=== PATIENT | male | born 1980 | race Caucasian/White ===

== ENCOUNTER 2017-10-21 15:15 | Emergency (ER) | payer SELFPAY ==
[~2017-10-21] VITALS: Ht 175.3 cm; Wt 92.5 kg
[~2017-10-21 15:15] MED LIST: ALBU8.5H8 IH; CLON0.1T20; COROTSUS OT; LURA20TA PO
[2017-10-21 15:26] VITALS: BP 148/73
[2017-10-21] MEDS ORDERED: ALBU8.5H8 IH (16:17)
[2017-10-21] MEDS ORDERED: GUAI120015 PO (16:17)
[2017-10-21] MEDS ORDERED: AZIT-57 PO (16:17)
[2017-10-21] MEDS ORDERED: GUAI473S11 PO (16:17)
== END 2017-10-21 16:43 | disposition home or self-care (01) ==
LOC: ER 15:15
DX: R05 Cough (principal); R50.9 Fever, unspecified; R68.89 Other general symptoms and signs; F17.200 Nicotine dependence, unspecified, uncomplicated; I10 Essential (primary) hypertension; F12.10 Cannabis abuse, uncomplicated; F15.10 Other stimulant abuse, uncomplicated; Z98.890 Other specified postprocedural states; Z79.899 Other long term (current) drug therapy
CPT/HCPCS: 99283

== ENCOUNTER 2018-03-31 09:41 | Emergency (ER) | payer BC, MEDICAID ==
[~2018-03-31] VITALS: Ht 597.6 cm; Wt 79.8 kg
[~2018-03-31 09:41] MED LIST changes: +GUAI120015 PO
[2018-03-31] MEDS ORDERED: ziprasidone 20mg capsule PO STA (10:14)
[2018-03-31 11:02] LABS: BASOPHILS % (AUTO) 0.6 % (0-1); EOSINOPHILS # (AUTO) 0.6 X10'3 (0-0.9); EOSINOPHILS % (AUTO) 8.3 % (0-6); HEMATOCRIT 50.4 % (42.0-52.0); HEMOGLOBIN 17.5 g/dl (14.0-17.9); LYMPHOCYTES # (AUTO) 2.3 X10'3 (1.1-4.8); LYMPHOCYTES % (AUTO) 30.2 % (21-51); MEAN CORPUSCULAR HEMOGLOBIN 30.9 PG (27.0-31.0); MEAN CORPUSCULAR HGB CONC 34.6 % (33.0-36.5); MEAN CORPUSCULAR VOLUME 89.3 FL (78-98); MEAN PLATELET VOLUME 8.2 FL (7.4-10.4); MONOCYTES # (AUTO) 0.4 X10'3 (0-0.9); MONOCYTES % (AUTO) 5.8 % (2-12); NEUTROPHILS # (AUTO) 4.1 X10'3 (1.8-7.7); NEUTROPHILS % (AUTO) 55.1 % (42-75); PLATELET COUNT 349 X10'3 (140-440); RED BLOOD COUNT 5.65 X10'6 (4.70-6.10); RED CELL DISTRIBUTION WIDTH 12.6 % (11.5-14.5); WHITE BLOOD COUNT 7.5 X10'3 (4.5-11.0)
[2018-03-31] MEDS ORDERED: LORazepam 1 MG tablet PO ONE (11:15)
[2018-03-31 11:16] LABS: ALANINE AMINOTRANSFERASE 23 U/L (12-78); ALBUMIN/GLOBULIN RATIO 1.1 (1.1-1.5); ALKALINE PHOSPHATASE 83 IU/L (46-116); ANION GAP 12 (8-16); ASPARTATE AMINO TRANSFERASE 14 U/L (10-37); BILIRUBIN,TOTAL 1.7 MG/DL (0.1-1.0); BLOOD UREA NITROGEN 7 MG/DL (7-18); BUN/CREATININE RATIO 6.5 (5.4-32.0); CALCIUM 9.1 MG/DL (8.5-10.1); CHLORIDE 102 MMOL/L (99-107); CREATININE 1.08 MG/DL (0.60-1.10); GLUCOSE 138 MG/DL (70-104); POTASSIUM 3.8 MMOL/L (3.5-5.1); SODIUM 140 MMOL/L (135-145); TOTAL CARBON DIOXIDE 25.7 MMOL/L (24-32); TOTAL PROTEIN 7.6 G/DL (6.4-8.2); eGFR 76 ML/MIN
[2018-03-31 11:26] LABS: ETHANOL < 0.010 GM/DL (0.0-0.010)
[2018-03-31 21:18] LABS: CLARITY,URINE CLEAR (Clear); COLOR,URINE YELLOW (Yellow); GLUCOSE, URINE NEGATIVE (Neg); KETONES,URINE NEGATIVE (Neg); LEUKOCYTE ESTERASE ,URINE NEGATIVE (Neg); NITRITES, URINE NEGATIVE (Neg); OCCULT BLOOD,URINE NEGATIVE (Neg); PROTEIN,URINE NEGATIVE (Neg); UROBILINOGEN,URINE 0.2 E.U/dL (0.2-1.0)
[2018-03-31 21:26] LABS: URINE AMPHETAMINE SCREEN POSITIVE (Neg); URINE BARBITUATE SCREEN NEGATIVE (Neg); URINE BENZODIAZEPINES SCREEN NEGATIVE (Neg); URINE CANNABINOID SCREEN NEGATIVE (Neg); URINE COCAINE SCREEN NEGATIVE (Neg); URINE METHADONE SCREEN NEGATIVE (Neg); URINE OPIATE SCREEN NEGATIVE (Neg); URINE PHENCYCLIDINE SCREEN NEGATIVE (Neg)
[2018-03-31 21:28] LABS: UA COLLECTION TYPE NON-SPECIFIED
[2018-04-02 06:06] VITALS: BP 100/66
[2018-04-02] MEDS ORDERED: NICO-687 TOP (09:33)
== END 2018-04-02 07:59 | disposition home or self-care (01) ==
LOC: ER 09:41 → EEVIPCON 09:41 → ER 04-02 07:59
DX: R45.851 Suicidal ideations (principal); F22 Delusional disorders; R45.1 Restlessness and agitation; F31.9 Bipolar disorder, unspecified; I10 Essential (primary) hypertension; F41.9 Anxiety disorder, unspecified; F12.90 Cannabis use, unspecified, uncomplicated; F15.90 Other stimulant use, unspecified, uncomplicated; F17.210 Nicotine dependence, cigarettes, uncomplicated; Z90.49 Acquired absence of other specified parts of digestive tract; Z98.890 Other specified postprocedural states; Z79.899 Other long term (current) drug therapy
CPT/HCPCS: 36415; 80053; 80305; 80320; 81003; 84443; 85025; 99284

== ENCOUNTER 2018-04-01 21:45 | Inpatient (IN) | payer BC ==
[~2018-04-01] VITALS: Ht 175.3 cm; Wt 98.6 kg
[2018-04-02] MEDS ORDERED: magnesium hydroxide 30ml (MOM) UD suspension PO PRN (08:20)
[2018-04-02] MEDS ORDERED: acetaminophen 325mg tablet PO PRN ×2 (08:20)
[2018-04-02] MEDS ORDERED: mag hydrox/Alum hydrox/simeth 30ml oral suspension PO PRN (08:20)
[2018-04-02 09:13] VITALS: BP 124/79
[2018-04-02] MEDS ORDERED: NICO-687 TOP (09:33)
[2018-04-02] MEDS: nicotine 21mg patch - 24 hr TD SCH (09:58)
[2018-04-02] MEDS ORDERED: traZODone 50mg tablet PO PRN (13:10)
[2018-04-02 13:43] LABS: CHOL/HDL RATIO 4.1 (0.00-4.99); CHOLESTEROL 143 MG/DL (0-200); HDL CHOLESTEROL 35 MG/DL (35-60); LDL CHOLESTEROL 98 MG/DL (50-100); TRIGLYCERIDES 120 MG/DL (20-135)
[2018-04-02 20:00] VITALS: BP 109/67
[2018-04-03] MEDS: nicotine 21mg patch - 24 hr TD SCH (07:16)
[2018-04-03] MEDS ORDERED: duloxetine 30mg CAPSULE.DR PO SCH (08:00)
[2018-04-03 08:20] VITALS: BP_SYST 109; BP_SYST 150; BP_DIAS 71; BP_DIAS 85
[2018-04-03 19:42] VITALS: BP 99/57
[2018-04-03] MEDS: traZODone 50mg tablet PO SCH (21:16)
[2018-04-04] MEDS: duloxetine 30mg CAPSULE.DR PO SCH (08:09)
[2018-04-04] MEDS: nicotine 21mg patch - 24 hr TD SCH (08:13)
[2018-04-04 08:51] VITALS: BP 112/66
[2018-04-04 19:18] VITALS: BP 121/81
[2018-04-04] MEDS: traZODone 50mg tablet PO SCH (21:31)
[2018-04-05] MEDS: duloxetine 30mg CAPSULE.DR PO SCH (07:23)
[2018-04-05] MEDS: nicotine 21mg patch - 24 hr TD SCH (07:23)
[2018-04-05 08:03] VITALS: BP 119/72
[2018-04-05] MEDS ORDERED: psyllium seed 3.4 gm packet PO PRN (14:40)
[2018-04-05 19:51] VITALS: BP 120/77
[2018-04-05] MEDS: traZODone 150mg tablet PO SCH (20:34)
[2018-04-06] MEDS: duloxetine 30mg CAPSULE.DR PO SCH (07:53)
[2018-04-06] MEDS: nicotine 21mg patch - 24 hr TD SCH (07:53)
[2018-04-06 08:00] VITALS: BP 110/77
[2018-04-06 19:55] VITALS: BP 118/69
[2018-04-06] MEDS: traZODone 150mg tablet PO SCH (21:00)
[2018-04-06] MEDS: hydrOXYzine 10 MG tablet PO PRN (21:00)
[2018-04-07 08:00] VITALS: BP 101/76
[2018-04-07] MEDS: duloxetine 30mg CAPSULE.DR PO SCH (08:21)
[2018-04-07] MEDS: nicotine 21mg patch - 24 hr TD SCH (08:22)
[2018-04-07] MEDS: propranolol 10mg tablet PO SCH ×2 (16:12→20:52)
[2018-04-07 20:17] VITALS: BP 112/74
[2018-04-07] MEDS: traZODone 150mg tablet PO SCH (20:52)
[2018-04-08 08:00] VITALS: BP 106/61
[2018-04-08] MEDS: propranolol 10mg tablet PO SCH ×3 (08:27→20:36)
[2018-04-08] MEDS: duloxetine 30mg CAPSULE.DR PO SCH (08:27)
[2018-04-08] MEDS: nicotine 21mg patch - 24 hr TD SCH (08:27)
[2018-04-08 19:39] VITALS: BP 133/74
[2018-04-08] MEDS: traZODone 150mg tablet PO SCH (20:37)
[2018-04-09] MEDS: nicotine 21mg patch - 24 hr TD SCH (07:44)
[2018-04-09] MEDS: duloxetine 30mg CAPSULE.DR PO SCH ×2 (07:46→12:33)
[2018-04-09] MEDS: propranolol 10mg tablet PO SCH ×3 (07:46→21:11)
[2018-04-09 08:00] VITALS: BP 105/56
[2018-04-09 19:34] VITALS: BP 114/65
[2018-04-09] MEDS: traZODone 50mg tablet PO SCH (21:12)
[2018-04-10 07:40] VITALS: BP 108/71
[2018-04-10] MEDS: nicotine 21mg patch - 24 hr TD SCH (07:43)
[2018-04-10] MEDS: duloxetine 30mg CAPSULE.DR PO SCH ×2 (07:43→12:51)
[2018-04-10] MEDS: propranolol 10mg tablet PO SCH ×3 (07:43→20:16)
[2018-04-10 12:45] VITALS: BP 107/57
[2018-04-10 19:50] VITALS: BP 100/69
[2018-04-10] MEDS: traZODone 50mg tablet PO SCH (20:16)
[2018-04-11 08:00] VITALS: BP 110/62
[2018-04-11] MEDS: nicotine 21mg patch - 24 hr TD SCH (08:28)
[2018-04-11] MEDS: busPIRone 5mg tablet PO SCH ×2 (08:28→20:32)
[2018-04-11] MEDS: propranolol 10mg tablet PO SCH ×3 (08:28→20:32)
[2018-04-11] MEDS: duloxetine 30mg CAPSULE.DR PO SCH ×2 (08:29→12:37)
[2018-04-11] MEDS: nicotine prolacrilex 2mg gum BC PRN ×2 (13:25→16:11)
[2018-04-11] MEDS: hydrOXYzine 10 MG tablet PO PRN (16:46)
[2018-04-11 19:00] VITALS: BP 111/57
[2018-04-11] MEDS: traZODone 50mg tablet PO SCH (20:32)
[2018-04-12] MEDS: nicotine 21mg patch - 24 hr TD SCH (07:44)
[2018-04-12] MEDS: propranolol 10mg tablet PO SCH ×3 (08:13→20:21)
[2018-04-12] MEDS: duloxetine 30mg CAPSULE.DR PO SCH ×2 (08:13→13:04)
[2018-04-12] MEDS: busPIRone 5mg tablet PO SCH ×2 (08:14→20:21)
[2018-04-12 08:21] VITALS: BP 108/59
[2018-04-12] MEDS: nicotine prolacrilex 2mg gum BC PRN (08:46)
[2018-04-12] MEDS: hydrOXYzine 10 MG tablet PO PRN (13:58)
[2018-04-12 19:00] VITALS: BP 111/48
[2018-04-12] MEDS: traZODone 50mg tablet PO SCH (20:21)
[2018-04-12 20:30] VITALS: BP 116/70
[2018-04-13 08:00] VITALS: BP 120/75
[2018-04-13] MEDS: nicotine 21mg patch - 24 hr TD SCH (08:11)
[2018-04-13] MEDS: duloxetine 30mg CAPSULE.DR PO SCH ×2 (08:11→12:55)
[2018-04-13] MEDS: busPIRone 5mg tablet PO SCH ×2 (08:11→20:28)
[2018-04-13] MEDS: propranolol 10mg tablet PO SCH ×3 (08:11→20:28)
[2018-04-13] MEDS: nicotine prolacrilex 2mg gum BC PRN ×3 (08:39→14:58)
[2018-04-13] MEDS: hydrOXYzine 10 MG tablet PO PRN (08:39)
[2018-04-13] MEDS ORDERED: tuberculin, purif. prot. deriv. 5 units/0.1ml ID ONE (14:05)
[2018-04-13 19:00] VITALS: BP 109/64
[2018-04-13] MEDS: traZODone 50mg tablet PO SCH (20:28)
[2018-04-14 07:41] VITALS: BP 124/52
[2018-04-14] MEDS: propranolol 10mg tablet PO SCH ×3 (08:27→20:20)
[2018-04-14] MEDS: duloxetine 30mg CAPSULE.DR PO SCH ×2 (08:27→12:51)
[2018-04-14] MEDS: busPIRone 5mg tablet PO SCH (08:28)
[2018-04-14] MEDS: nicotine 21mg patch - 24 hr TD SCH (08:28)
[2018-04-14] MEDS: nicotine prolacrilex 2mg gum BC PRN ×3 (09:00→13:28)
[2018-04-14 19:30] VITALS: BP 125/77
[2018-04-14] MEDS: busPIRone 15mg tablet PO SCH (20:20)
[2018-04-14] MEDS: traZODone 50mg tablet PO SCH (21:11)
[2018-04-15] MEDS: duloxetine 30mg CAPSULE.DR PO SCH ×2 (07:28→12:54)
[2018-04-15] MEDS: busPIRone 15mg tablet PO SCH ×2 (07:28→20:26)
[2018-04-15] MEDS: propranolol 10mg tablet PO SCH ×3 (07:29→20:25)
[2018-04-15] MEDS: nicotine 21mg patch - 24 hr TD SCH (07:29)
[2018-04-15 08:00] VITALS: BP 121/77
[2018-04-15] MEDS: nicotine prolacrilex 2mg gum BC PRN ×4 (10:30→17:33)
[2018-04-15 20:00] VITALS: BP 132/75
[2018-04-15] MEDS: traZODone 50mg tablet PO SCH (20:26)
[2018-04-16] MEDS ORDERED: PROP20TA6 PO (07:13)
[2018-04-16] MEDS ORDERED: DULO30CA51 PO (07:13)
[2018-04-16] MEDS ORDERED: BUSP10TA10 PO (07:13)
[2018-04-16] MEDS ORDERED: HYDR-3717 PO (07:13)
[2018-04-16] MEDS ORDERED: DULO60CA45 PO (07:13)
[2018-04-16] MEDS ORDERED: TRAZ-219 PO (07:13)
[2018-04-16] MEDS ORDERED: NICO-687 TD (07:13)
[2018-04-16 08:00] VITALS: BP 116/64
[2018-04-16] MEDS: busPIRone 15mg tablet PO SCH (08:08)
[2018-04-16] MEDS: nicotine 21mg patch - 24 hr TD SCH (08:08)
[2018-04-16] MEDS: duloxetine 30mg CAPSULE.DR PO SCH ×2 (08:09→13:14)
[2018-04-16] MEDS: propranolol 10mg tablet PO SCH ×2 (08:10→13:14)
[2018-04-16] MEDS: nicotine prolacrilex 2mg gum BC PRN ×2 (08:36→10:33)
== END 2018-04-16 14:30 | disposition home or self-care (01) | DRG 885 ==
LOC: ADULT MH 21:45
PROVIDERS: ADMIT Psychiatry & Neurology Psychiatry; ATTEND Psychiatry & Neurology Psychiatry
DX: F33.3 Major depressive disorder, recurrent, severe with psychotic symptoms (principal); R45.851 Suicidal ideations; F17.210 Nicotine dependence, cigarettes, uncomplicated; F40.10 Social phobia, unspecified; F41.9 Anxiety disorder, unspecified; F15.19 Other stimulant abuse with unspecified stimulant-induced disorder; Z79.899 Other long term (current) drug therapy; Z59.0 Homelessness
CPT/HCPCS: 36415; 80061; 83036; 87070

== ENCOUNTER 2018-05-22 13:54 | Emergency (ER) | payer BC, OTHER ==
[~2018-05-22] VITALS: Ht 175.3 cm; Wt 90.0 kg
[~2018-05-22 13:54] MED LIST changes: +BUSP10TA10 PO; +BUSP10TA11 PO; -CLON0.1T20; -COROTSUS OT; +DULO-31 PO; +DULO30CA51 PO; +DULO60CA45 PO; -GUAI120015 PO; +HYDR-3717 PO; -LURA20TA PO; +NICO-687 TD; +PROP20TA6 PO; +TRAZ-219 PO
[2018-05-22 13:59] VITALS: BP 139/92
[2018-05-22] MEDS ORDERED: CLIN300C85 PO (14:36)
== END 2018-05-22 14:49 | disposition home or self-care (01) ==
LOC: ER 13:55
DX: K08.89 Other specified disorders of teeth and supporting structures (principal); I10 Essential (primary) hypertension; F17.200 Nicotine dependence, unspecified, uncomplicated; Z90.49 Acquired absence of other specified parts of digestive tract; Z79.2 Long term (current) use of antibiotics; Z79.899 Other long term (current) drug therapy
CPT/HCPCS: 99283

== ENCOUNTER → 2018-07-20 | Emergency (ER) | payer OTHER ==
[~2018-07-20] VITALS: Ht 177.8 cm; Wt 91.0 kg
[~2018-07-20] MED LIST changes: -BUSP10TA11 PO; +CLIN300C85 PO
[2018-07-20 06:10] VITALS: BP 169/88
== END | disposition home or self-care (01) ==
LOC: ER 12:53
DX: R05 Cough (principal); R09.89 Other specified symptoms and signs involving the circulatory and respiratory systems; I10 Essential (primary) hypertension; Z90.49 Acquired absence of other specified parts of digestive tract; Z98.890 Other specified postprocedural states; Z79.899 Other long term (current) drug therapy
CPT/HCPCS: 99281

== ENCOUNTER 2019-07-05 11:35 | Emergency (ER) | payer OTHER ==
[~2019-07-05] VITALS: Ht 175.3 cm; Wt 104.5 kg
[~2019-07-05 11:35] MED LIST changes: +CLIN-90 PO; -CLIN300C85 PO; -DULO30CA51 PO; +DULO30CA52 PO
[2019-07-05 11:54] VITALS: BP 181/106
[2019-07-05] MEDS ORDERED: SULF1TAB49 PO (14:15)
[2019-07-05] MEDS ORDERED: AMOX-580 PO (14:15)
== END 2019-07-05 14:40 | disposition home or self-care (01) ==
LOC: ER 11:35
DX: L02.211 Cutaneous abscess of abdominal wall (principal); B34.9 Viral infection, unspecified; R05 Cough; R42 Dizziness and giddiness; R51 Headache; R11.0 Nausea; I10 Essential (primary) hypertension; F41.9 Anxiety disorder, unspecified; F32.9 Major depressive disorder, single episode, unspecified; F17.200 Nicotine dependence, unspecified, uncomplicated; Z90.49 Acquired absence of other specified parts of digestive tract; Z98.890 Other specified postprocedural states; Z79.2 Long term (current) use of antibiotics; Z79.899 Other long term (current) drug therapy
CPT/HCPCS: 99283